=== PATIENT | female | born 1980 | race Caucasian/White ===

== ENCOUNTER 2017-10-03 14:44 | Emergency (ER) | payer OTHER ==
[~2017-10-03] VITALS: Ht 162.6 cm; Wt 70.3 kg
[~2017-10-03 14:44] MED LIST: CYCL10 PO; GABA600 PO; HYDACE5 PO; METPRE4DP PO; Naprosyn500 MG PO; PANT40 PO; Percocet 5-3251 EACH PO
[2017-10-03] MEDS ORDERED: CYCL10 PO (15:06)
[2017-10-03] MEDS ORDERED: Robaxin500 MG PO (15:51)
[2017-10-03] MEDS ORDERED: Percocet 5-3251 EACH PO (15:51)
== END 2017-10-03 15:59 | disposition home or self-care (01) ==
LOC: ER 14:44
DX: M54.41 Lumbago with sciatica, right side (principal); M48.00 Spinal stenosis, site unspecified; Z98.51 Tubal ligation status; Z87.891 Personal history of nicotine dependence; Z88.8 Allergy status to other drugs, medicaments and biological substances
CPT/HCPCS: 96372; 99283; J1885

== ENCOUNTER 2017-11-26 15:18 | Emergency (ER) | payer OTHER ==
[~2017-11-26] VITALS: Ht 162.6 cm; Wt 72.6 kg
[~2017-11-26 15:18] MED LIST changes: +Robaxin500 MG PO
[2017-11-26] MEDS ORDERED: Percocet 5-3251 EACH PO (16:16)
[2017-11-26] MEDS ORDERED: Voltaren100 GM TOP (16:16)
[2017-11-26] MEDS ORDERED: Prednisone20 MG PO (16:16)
== END 2017-11-26 16:28 | disposition home or self-care (01) ==
LOC: ER 15:18
DX: M54.31 Sciatica, right side (principal); Z88.8 Allergy status to other drugs, medicaments and biological substances; Z79.899 Other long term (current) drug therapy; Z87.891 Personal history of nicotine dependence
CPT/HCPCS: 96372; 99283; J1885

== ENCOUNTER 2019-07-17 15:22 | Emergency (ER) | payer OTHER ==
[~2019-07-17] VITALS: Ht 162.6 cm; Wt 72.6 kg
[~2019-07-17 15:22] MED LIST changes: +Prednisone20 MG PO; +Voltaren100 GM TOP
[2019-07-17] MEDS ORDERED: Percocet 5-3251 EACH PO (17:46)
== END 2019-07-17 18:06 | disposition home or self-care (01) ==
LOC: ER 15:22
DX: M54.5 Low back pain (principal); G89.29 Other chronic pain; Z88.8 Allergy status to other drugs, medicaments and biological substances; M48.00 Spinal stenosis, site unspecified; M51.9 Unspecified thoracic, thoracolumbar and lumbosacral intervertebral disc disorder
CPT/HCPCS: 99283

== ENCOUNTER → 2020-06-01 | Outpatient (CLI) | payer OTHER ==
[2020-06-02 14:08] LABS: HPV 16 Negative (Negative); HPV 18 Negative (Negative); HPV OTHER HR TYPES Negative (Negative)
== END | disposition home or self-care (01) ==
LOC: LAB SHORT 14:38 → LAB 14:38
PROVIDERS: Obstetrics & Gynecology
DX: Z01.419 Encounter for gynecological examination (general) (routine) without abnormal findings (principal)
CPT/HCPCS: 87624; G0123

== ENCOUNTER 2020-11-07 06:11 | Inpatient (IN) | payer OTHER ==
[~2020-11-07] VITALS: Ht 162.6 cm; Wt 69.9 kg
[~2020-11-07 06:11] MED LIST changes: +Robaxin750 MG PO
[2020-11-08 04:29] LABS: Hematocrit 29.5 % (33.0-51.0); Hemoglobin 9.4 g/dL (11.5-16.0); Mean Corpuscular HGB 28.4 pg (26.0-34.0); Mean Corpuscular HGB Conc 31.9 g/dL (31.5-36.5); Mean Corpuscular Volume 89 fL (80-100); Mean Platelet Volume 9.9 fL (9.1-12.4); Platelet Count 184 K/mm3 (150-400); RDW Coefficient Variation 12.9 % (11.7-14.2); RDW Standard Deviation 42.1 fL (35.1-46.3); Red Blood Cell Count 3.31 M/mm3 (3.80-5.20); White Blood Cell Count 6.65 K/mm3 (4.00-11.30)
[2020-11-09] MEDS ORDERED: OXYC5 PO (09:10)
[2020-11-09] MEDS ORDERED: DOCU100 PO (09:11)
[2020-11-09] MEDS ORDERED: IBUP800 PO (09:11)
[2020-11-09] MEDS ORDERED: ONDA4ODT MM (09:11)
== END 2020-11-09 09:45 | disposition home or self-care (01) | DRG 742 ==
LOC: SURS 06:11 → PRE IP 07:30 → SURS 12:49
PROVIDERS: ADMIT Obstetrics & Gynecology
PROC: 0UJD4ZZ Inspection of Uterus and Cervix, Percutaneous Endoscopic Approach (ICD-10-PCS; 2020-11-07)
PROC: 0TNB0ZZ Release Bladder, Open Approach (ICD-10-PCS; 2020-11-07)
PROC: 0UT90ZZ Resection of Uterus, Open Approach (ICD-10-PCS; principal; 2020-11-07 07:30)
PROC: 0UT70ZZ Resection of Bilateral Fallopian Tubes, Open Approach (ICD-10-PCS; 2020-11-07 07:30)
PROC: 0UT10ZZ Resection of Left Ovary, Open Approach (ICD-10-PCS; 2020-11-07 07:30)
DX: N93.9 Abnormal uterine and vaginal bleeding, unspecified (principal); D62 Acute posthemorrhagic anemia; N83.202 Unspecified ovarian cyst, left side; F41.9 Anxiety disorder, unspecified; M54.42 Lumbago with sciatica, left side; M54.41 Lumbago with sciatica, right side; G47.00 Insomnia, unspecified; F32.9 Major depressive disorder, single episode, unspecified; N92.1 Excessive and frequent menstruation with irregular cycle; N88.2 Stricture and stenosis of cervix uteri; G89.29 Other chronic pain; R11.10 Vomiting, unspecified; Z98.51 Tubal ligation status; Z87.891 Personal history of nicotine dependence; Z88.5 Allergy status to narcotic agent; Z88.8 Allergy status to other drugs, medicaments and biological substances
CPT/HCPCS: 36415; 85027; 86850; 86900; 86901; 88307; A9270; J0171; J0690; J1100; J1170; J1885; J2250; J2405; J2704; J2765; J2916; J3010; J7120

== ENCOUNTER 2020-11-10 20:35 | Emergency (ER) | payer OTHER ==
[~2020-11-10] VITALS: Ht 162.6 cm; Wt 68.0 kg
[~2020-11-10 20:35] MED LIST changes: +DOCU100 PO; +IBUP800 PO; +ONDA4ODT MM; +OXYC5 PO
[2020-11-10 21:35] LABS: Alanine Aminotransfer (ALT/SGP 153 U/L (12-78); Albumin, Blood 3.4 g/dL (3.4-5.0); Alk Phos 76 U/L (50-136); Anion Gap 7 mmol/L (6-16); Aspartate Aminotrans (AST/SGOT 235 U/L (12-37); Bilirubin, Total 0.3 mg/dL (0.1-1.0); Blood Urea Nitrogen 9 mg/dL (8-24); Bun/Creatinine Ratio 13.9 (12.0-20.0); CO2, Blood 25 mmol/L (21-32); Calcium, Blood 8.8 mg/dL (8.5-10.1); Chloride, Blood 104 mmol/L (98-108); Creatinine, Blood 0.65 mg/dL (0.40-1.00); Globulin, Blood 3.4 g/dL (2.2-4.0); Glomerular Filtration Rate >60 (60-); Glucose, Blood 122 mg/dL (70-99); Potassium, Blood 3.3 mmol/L (3.5-5.5); Sodium, Blood 136 mmol/L (136-145); Total Protein, Blood 6.8 g/dL (6.4-8.2)
[2020-11-10 21:45] LABS: BASOPHILS ABSOLUTE AUTO 0.03 K/mm3 (0.00-0.23); BASOPHILS PERCENT AUTO 0 % (0-2); EOSINOPHILS ABSOLUTE AUTO 0.09 K/mm3 (0.00-0.68); EOSINOPHILS PERCENT AUTO 1 % (0-6); Hematocrit 31.1 % (33.0-51.0); IMMATURE GRAN ABSOLUTE AUTO 0.04 K/mm3 (0.00-0.10); IMMATURE GRAN PERCENT AUTO 1 % (0-1); LYMPHOCYTES ABSOLUTE AUTO 1.53 K/mm3 (0.84-5.20); LYMPHOCYTES PERCENT AUTO 21 % (21-46); MONOCYTES ABSOLUTE AUTO 0.36 K/mm3 (0.16-1.47); MONOCYTES PERCENT AUTO 5 % (4-13); Mean Corpuscular HGB 28.6 pg (26.0-34.0); Mean Corpuscular HGB Conc 32.2 g/dL (31.5-36.5); Mean Corpuscular Volume 89 fL (80-100); Mean Platelet Volume 10.3 fL (9.1-12.4); NEUTROPHILS ABSOLUTE AUTO 5.41 K/mm3 (1.96-9.15); NEUTROPHILS PERCENT AUTO 73 % (41-73); Platelet Count 249 K/mm3 (150-400); RDW Coefficient Variation 13.2 % (11.7-14.2); RDW Standard Deviation 42.2 fL (35.1-46.3); White Blood Cell Count 7.46 K/mm3 (4.00-11.30)
[2020-11-10 23:31] LABS: Source, Urine Clean Catch
[2020-11-10 23:32] LABS: Bilirubin, Urine Neg (Neg); Blood, Urine 1+ (Neg); Glucose Qualitative, Urine 3+ (Neg); Ketones, Urine 4+ (Neg); Leukocyte Esterase, Urine Neg (Neg); Nitrite, Urine Neg (Neg); Protein, Urine 2+ (Neg); Urobilinogen, Urine NORM (Normal)
[2020-11-10 23:43] LABS: U Amphetamine Screen Not Detected; U Barbituate Screen Not Detected; U Benzodiazapine Screen Not Detected; U Buprenorphine Screen Not Detected; U Cannabinoids Screen DETECTED; U Cocaine Screen Not Detected; U Methadone Screen Not Detected; U Methamphetamine Screen Not Detected; U Opiates Screen Not Detected; U Oxycodone Screen DETECTED; U Phencyclidine Screen Not Detected; U Propoxyphene Screen Not Detected
[2020-11-10 23:44] LABS: Appearance, Urine Clear (Clear); Color, Urine Yellow (P-Yellow)
[2020-11-10 23:51] LABS: Bacteria Not Seen /hpf; Red Blood Cells, Urine Rare /hpf (0-2); Squamous Epithelial Cells Few /hpf (Few); White Blood Cells, Urine Not Seen /hpf (0-5)
== END 2020-11-11 02:23 | disposition home or self-care (01) ==
LOC: ER 20:35
PROVIDERS: Emergency Medicine; Student in an Organized Health Care Education/Training Program
DX: R11.2 Nausea with vomiting, unspecified (principal); R56.9 Unspecified convulsions; Z88.8 Allergy status to other drugs, medicaments and biological substances; Z79.899 Other long term (current) drug therapy; Z87.891 Personal history of nicotine dependence
CPT/HCPCS: 70450; 80053; 81001; 83690; 85025; 93005; 93010; 96374; 96375; 99284-25; J1200; J1790; J2405; J7120

== ENCOUNTER 2021-04-20 10:09 | Day surgery (SDC) | payer OTHER ==
[~2021-04-20] VITALS: Ht 162.6 cm; Wt 67.2 kg
[2021-04-20] MEDS ORDERED: Methocarbamol750 MG PO (11:25)
[2021-04-20] MEDS ORDERED: GABAPENTIN600 MG PO (11:25)
[2021-04-20] MEDS ORDERED: HYDROCODONE-AC1 EA14 (11:25)
[2021-04-20] MEDS ORDERED: SULFAMETHOXAZO1 EAC1 (11:27)
[2021-04-23] MEDS ORDERED: POTCHL20ER PO (13:19)
== END 2021-04-20 15:15 | disposition home or self-care (01) ==
LOC: ORSCSDS 10:09
PROVIDERS: Orthopaedic Surgery
PROC: 0SBC4ZZ Excision of Right Knee Joint, Percutaneous Endoscopic Approach (ICD-10-PCS; principal; 2021-04-20 11:30)
DX: S83.281A Other tear of lateral meniscus, current injury, right knee, initial encounter (principal); M25.861 Other specified joint disorders, right knee; Z87.891 Personal history of nicotine dependence; F41.8 Other specified anxiety disorders; Z79.899 Other long term (current) drug therapy
CPT/HCPCS: J0171; J0690; J1100; J2250; J2405; J2704; J3010; J7120